=== PATIENT | female | born 1980 | race Caucasian/White ===

== ENCOUNTER → 2018-01-28 | Outpatient (CLI) | payer OTHER ==
[2018-01-28 07:42] LABS: GLUCOSE, FASTING 85 MG/DL (LESS THAN 95)
[2018-01-28 09:09] LABS: 1 HR GLUCOSE 174 MG/DL (LESS THAN 180)
[2018-01-28 10:06] LABS: 2 HR GLUCOSE 139 MG/DL (LESS THAN 155)
[2018-01-28 10:56] LABS: 3 HR GLUCOSE 143 MG/DL (LESS THAN 140)
== END ==
LOC: M LAB 07:05
DX: Z34.83 Encounter for supervision of other normal pregnancy, third trimester (principal); Z36.89 Encounter for other specified antenatal screening
CPT/HCPCS: 82951

== ENCOUNTER 2018-01-29 15:19 | Outpatient (CLI) | payer OTHER ==
[2018-01-29] MEDS ORDERED: LR 1,000 ML IV ×2 (15:50)
[2018-01-29] MEDS: LACTATED RINGER'S 1000 ML IV ×2 (16:03)
[2018-01-29] MEDS: TERBUTALINE SULFATE 1 MG/ML VIAL (J3105) SC ×2 (17:33)
== END 2018-01-29 18:25 | disposition home or self-care (01) ==
LOC: M LDO 15:19
DX: O47.03 False labor before 37 completed weeks of gestation, third trimester (principal); Z3A.31 31 weeks gestation of pregnancy
CPT/HCPCS: J3105

== ENCOUNTER 2018-02-03 13:11 | Outpatient (CLI) | payer OTHER | END 2018-02-03 14:56 | disposition home or self-care (01) | LOC: M LDO 13:11 | DX: O36.8130 Decreased fetal movements, third trimester, not applicable or unspecified (principal); O26.893 Other specified pregnancy related conditions, third trimester; R10.30 Lower abdominal pain, unspecified; O47.03 False labor before 37 completed weeks of gestation, third trimester; Z3A.32 32 weeks gestation of pregnancy | CPT/HCPCS: 76815 ==

== ENCOUNTER 2018-02-23 10:28 | Outpatient (CLI) | payer OTHER | END 2018-02-23 13:20 | disposition home or self-care (01) | LOC: M LDO 10:28 | DX: O47.03 False labor before 37 completed weeks of gestation, third trimester (principal); Z3A.34 34 weeks gestation of pregnancy; Z87.59 Personal history of other complications of pregnancy, childbirth and the puerperium; O26.893 Other specified pregnancy related conditions, third trimester; O09.513 Supervision of elderly primigravida, third trimester | CPT/HCPCS: 59025 ==

== ENCOUNTER → 2018-03-05 | Outpatient (REF) | payer OTHER | LOC: M LAB REF 13:01 | DX: O09.523 Supervision of elderly multigravida, third trimester (principal) ==

== ENCOUNTER 2018-03-15 17:08 | Outpatient (CLI) | payer OTHER | END 2018-03-15 18:00 | disposition home or self-care (01) | LOC: M LDO 17:08 | DX: O47.1 False labor at or after 37 completed weeks of gestation (principal); Z3A.37 37 weeks gestation of pregnancy; O26.893 Other specified pregnancy related conditions, third trimester | CPT/HCPCS: 59025 ==

== ENCOUNTER 2018-03-24 15:06 | Inpatient (IN) | payer OTHER ==
[2018-03-24] MEDS ORDERED: miSOPROStol 50 MCG 1/2 TAB (S0191) PO (16:00)
[2018-03-24] MEDS: OXYTOCIN DRIP 30 UNITS in APPROPRIATE DILUENT 1 EA IV (16:43)
[2018-03-24] MEDS: LR 1,000 ML IV (16:43)
[2018-03-24] MEDS: busPIRone 5 MG TAB PO (16:43)
[2018-03-24 16:44] LABS: HEMATOCRIT 30.5 % (36.0-47.0); HEMOGLOBIN 9.6 g/dl (12.0-15.5); MEAN CORPUSCULAR HEMOGLOBIN 25.1 pg (27.0-33.0); MEAN CORPUSCULAR HGB CONC 31.5 g/dl (32.0-36.5); MEAN CORPUSCULAR VOLUME 79.8 fl (80.0-96.0); PLATELET COUNT, AUTOMATED 277 10^3/uL (150-450); RED BLOOD COUNT 3.82 10^6/uL (4.00-5.40); RED CELL DISTRIBUTION WIDTH 17.7 % (11.5-14.5); WHITE BLOOD COUNT 9.4 10^3/uL (4.0-10.0)
[2018-03-24] MEDS: FAMOTIDINE 20 MG TAB PO (18:07)
[2018-03-24 18:22] LABS: HBSAG L&D NEGATIVE (NEGATIVE)
[2018-03-24] MEDS ORDERED: FENTANYL 2MCG/ML ROPIVACAINE 0.2% IN 0.9% NACL 200ML IVBAG As Ordered (19:26)
[2018-03-24] MEDS ORDERED: REFRIGERATOR IV KEYS XX (20:37)
[2018-03-24] MEDS ORDERED: EPIDURAL/PCA KEYS XX (20:37)
[2018-03-24] MEDS ORDERED: diphenhydrAMINE INJ 50MG/ML VIAL (J1200) IV (20:37)
[2018-03-24] MEDS ORDERED: EPIDURAL COMMENT XX (20:37)
[2018-03-24] MEDS ORDERED: ePHEDrine SULFATE 25 MG/5 ML(5MG/ML) SYRINGE IV (20:37)
[2018-03-24] MEDS ORDERED: FENTANYL/ROPIVACAINE/NACL BAG 200 ML EPIDURAL (20:37)
[2018-03-24] MEDS ORDERED: ONDANSETRON 4MG/2ML VIAL (J2405) IV (20:37)
[2018-03-24] MEDS ORDERED: NALOXONE INJ 0.4 MG/1 ML VIAL (J2310) IV (20:37)
[2018-03-25] MEDS ORDERED: DIBUCAINE 1% OINTMENT 30GM TOP (01:00)
[2018-03-25] MEDS ORDERED: METHYLERGONOVINE MALEATE 0.2 MG TAB PO (01:00)
[2018-03-25] MEDS ORDERED: ONDANSETRON 4MG/2ML VIAL (J2405) IV (01:00)
[2018-03-25] MEDS ORDERED: RHOGAM 300 MCG (1500 IU) INJ (J2790) IM (01:00)
[2018-03-25] MEDS ORDERED: ACETAMINOPHEN 500 MG TAB PO (01:00)
[2018-03-25] MEDS ORDERED: DOCUSATE SODIUM 100 MG CAP PO (01:00)
[2018-03-25] MEDS ORDERED: MEASLES,MUMPS,RUBELLA VACCINE INJ (MMR-II) (90707) SC (01:00)
[2018-03-25] MEDS: OXYTOCIN DRIP 30 UNITS in APPROPRIATE DILUENT 1 EA IV (01:00)
[2018-03-25] MEDS: OXYTOCIN INJ 10 UNITS/ML VIAL (J2590) IV (02:00)
[2018-03-25] MEDS: IBUPROFEN 800 MG TAB PO ×2 (03:59→20:21)
[2018-03-25 07:17] LABS: HEMATOCRIT 21.8 % (36.0-47.0); MEAN CORPUSCULAR HEMOGLOBIN 24.6 pg (27.0-33.0); MEAN CORPUSCULAR HGB CONC 30.3 g/dl (32.0-36.5); MEAN CORPUSCULAR VOLUME 81.3 fl (80.0-96.0); PLATELET COUNT, AUTOMATED 208 10^3/uL (150-450); RED BLOOD COUNT 2.68 10^6/uL (4.00-5.40); RED CELL DISTRIBUTION WIDTH 17.5 % (11.5-14.5); WHITE BLOOD COUNT 17.2 10^3/uL (4.0-10.0)
[2018-03-25 07:25] LABS: HEMOGLOBIN 6.6 g/dl (12.0-15.5)
[2018-03-25 08:40] LABS: IMMEDIATE SPIN CROSSMATCH 1 2
[2018-03-25] MEDS: PRENATAL VITAMINS CHEWABLE TABLET PO (09:08)
[2018-03-25] MEDS ORDERED: PERCOCET 5MG/325MG TAB PO (11:30)
[2018-03-25] MEDS: PERCOCET 5MG/325MG TAB PO ×3 (11:44→20:22)
[2018-03-25] MEDS: NS 1,000 ML IV (13:00)
[2018-03-25 19:47] LABS: HEMATOCRIT 27.7 % (36.0-47.0); HEMOGLOBIN 9.1 g/dl (12.0-15.5); MEAN CORPUSCULAR HEMOGLOBIN 26.5 pg (27.0-33.0); MEAN CORPUSCULAR HGB CONC 32.9 g/dl (32.0-36.5); MEAN CORPUSCULAR VOLUME 80.8 fl (80.0-96.0); PLATELET COUNT, AUTOMATED 222 10^3/uL (150-450); RED BLOOD COUNT 3.43 10^6/uL (4.00-5.40); RED CELL DISTRIBUTION WIDTH 17.5 % (11.5-14.5); WHITE BLOOD COUNT 16.8 10^3/uL (4.0-10.0)
[2018-03-26] MEDS: PERCOCET 5MG/325MG TAB PO ×2 (02:26→11:41)
[2018-03-26] MEDS: PRENATAL VITAMINS CHEWABLE TABLET PO (08:54)
[2018-03-26] MEDS: IBUPROFEN 800 MG TAB PO (15:17)
== END 2018-03-26 18:40 | disposition home or self-care (01) | DRG 807 ==
LOC: M LDI 15:06 → M OBS 03-25 04:57
PROC: 3E0DXGC Introduction of Other Therapeutic Substance into Mouth and Pharynx, External Approach (ICD-10-PCS; 2018-03-24)
PROC: 10E0XZZ Delivery of Products of Conception, External Approach (ICD-10-PCS; principal; 2018-03-25)
PROC: 0KQM0ZZ Repair Perineum Muscle, Open Approach (ICD-10-PCS; 2018-03-25)
DX: O69.82X0 Labor and delivery complicated by other cord entanglement, without compression, not applicable or unspecified (principal); Z37.0 Single live birth; O09.523 Supervision of elderly multigravida, third trimester; O70.1 Second degree perineal laceration during delivery; Z3A.39 39 weeks gestation of pregnancy

== ENCOUNTER 2018-07-10 13:39 | Day surgery (SDC) | payer OTHER ==
[~2018-07-10] VITALS: Ht 152.4 cm; Wt 57.6 kg
[~2018-07-10 13:39] MED LIST: BUSP5TA PO; COLA100C5 PO; FERR325T3 PO; GLYCOPYRROLATE INJ 0.2 MG/ML 2 ML VIAL As Ordered ONE; HYDROmorphone HCL 2 MG/ML 1ML VIAL (J1170) As Ordered ONE; IBUP80TA PO; KETOROLAC 60 MG/2 ML VIAL (J1885) As Ordered ONE; LIDOCAINE 2% INJ 100 MG/5 ML SDV (FOR ANES.) As Ordered ONE; LR 1,000 ML IV ONE; MAPA500T2 PO; MIDAZOLAM INJ 2 MG/2 ML VIAL (J2250) As Ordered ONE; MULT1CHW25 PO; NEOSTIGMINE 10 MG/10 ML VIAL (J2710) As Ordered ONE; ONDANSETRON 4MG/2ML VIAL (J2405) As Ordered ONE; OXYC1TAB23 PO; PERCOCET PO; PRENTAB9 PO; PROMETHAZINE PO; PROPOFOL 200 MG/20 ML VIAL As Ordered ONE; RANI150T PO; ROCURONIUM BROMIDE 50 MG/5 ML VIAL As Ordered ONE; dexameTHASONE 4 MG/ML 1ML VIAL (J1100) As Ordered ONE; fentaNYL 100 MCG/2 ML INJECTION (J3010) As Ordered ONE
[2018-07-10 14:04] LABS: HEMATOCRIT 38.8 % (36.0-47.0); HEMOGLOBIN 12.5 g/dl (12.0-15.5); MEAN CORPUSCULAR HEMOGLOBIN 27.5 pg (27.0-33.0); MEAN CORPUSCULAR HGB CONC 32.2 g/dl (32.0-36.5); MEAN CORPUSCULAR VOLUME 85.3 fl (80.0-96.0); PLATELET COUNT, AUTOMATED 386 10^3/uL (150-450); RED BLOOD COUNT 4.55 10^6/uL (4.00-5.40)
[2018-07-10 14:18] LABS: URINE PREG TEST NEGATIVE (NEGATIVE)
[2018-07-10] MEDS ORDERED: BUPIVACAINE HCL 0.25% 10 ML VIAL As Ordered ONE (15:06)
[2018-07-10] MEDS ORDERED: OXYC1TAB23 PO (15:31)
[2018-07-10] MEDS ORDERED: SUGAMMADEX SODIUM 500 MG/5 ML VIAL (BRIDION) As Ordered ONE (15:51)
[2018-07-10] MEDS ORDERED: GLYCOPYRROLATE INJ 0.2 MG/ML 2 ML VIAL As Ordered ONE (15:53)
[2018-07-10] MEDS ORDERED: NEOSTIGMINE 10 MG/10 ML VIAL (J2710) As Ordered ONE (15:53)
[2018-07-10] MEDS ORDERED: HYDROMORPHONE HCL 0.5 MG/ 0.5 ML SYRINGE (J1170 PER 1) As Ordered ONE (16:23)
[2018-07-10] MEDS: HYDROMORPHONE HCL 0.5 MG/ 0.5 ML SYRINGE (J1170 PER 1) IV PRN ×2 (16:30→16:45)
[2018-07-10] MEDS ORDERED: ONDANSETRON 4MG/2ML VIAL (J2405) IV PRN (16:30)
[2018-07-10] MEDS ORDERED: METOCLOPRAMIDE INJ 10MG/2ML VIAL (J2765) IV PRN (16:30)
[2018-07-10] MEDS ORDERED: HYDROMORPHONE HCL 0.5 MG/ 0.5 ML SYRINGE (J1170 PER 1) IV PRN (16:30)
[2018-07-10] MEDS ORDERED: PERCOCET 5MG/325MG TAB PO PRN ×2 (16:30)
[2018-07-10] MEDS ORDERED: MEPERIDINE INJ 25 MG/ML VIAL (J2175) IV PRN (16:30)
[2018-07-10] MEDS ORDERED: LR 1,000 ML IV SCH ×2 (16:30)
[2018-07-10] MEDS ORDERED: fentaNYL 100 MCG/2 ML INJECTION (J3010) IV PRN (16:30)
[2018-07-10 18:55] VITALS: BP 112/73
== END 2018-07-10 19:08 | disposition home or self-care (01) ==
LOC: M SDC 13:39
PROVIDERS: ATTEND Specialist
DX: Z30.2 Encounter for sterilization (principal); D64.9 Anemia, unspecified
CPT/HCPCS: 36415; 58661; 84703; 85027; 88302; J1100; J1170; J1885; J2250; J2405; J2710; J3010

== ENCOUNTER 2020-11-11 05:33 | Emergency (ER) | payer OTHER ==
[~2020-11-11 05:33] MED LIST changes: -GLYCOPYRROLATE INJ 0.2 MG/ML 2 ML VIAL As Ordered ONE; -HYDROmorphone HCL 2 MG/ML 1ML VIAL (J1170) As Ordered ONE; -KETOROLAC 60 MG/2 ML VIAL (J1885) As Ordered ONE; -LIDOCAINE 2% INJ 100 MG/5 ML SDV (FOR ANES.) As Ordered ONE; -LR 1,000 ML IV ONE; -MIDAZOLAM INJ 2 MG/2 ML VIAL (J2250) As Ordered ONE; -NEOSTIGMINE 10 MG/10 ML VIAL (J2710) As Ordered ONE; -ONDANSETRON 4MG/2ML VIAL (J2405) As Ordered ONE; -PROPOFOL 200 MG/20 ML VIAL As Ordered ONE; -ROCURONIUM BROMIDE 50 MG/5 ML VIAL As Ordered ONE; -dexameTHASONE 4 MG/ML 1ML VIAL (J1100) As Ordered ONE; -fentaNYL 100 MCG/2 ML INJECTION (J3010) As Ordered ONE
[2020-11-11 06:21] LABS: BASO # 0.1 10^3/uL (0.0-0.2); BASO % 0.6 % (0.0-1.0); EOS # 0.1 10^3/uL (0.0-0.5); EOS % 0.7 % (0.0-3.0); HEMATOCRIT 37.1 % (36.0-47.0); HEMOGLOBIN 11.9 g/dl (12.0-15.5); LYMPH # 2.2 10^3/uL (1.5-5.0); LYMPH % 24.9 % (24.0-44.0); MEAN CORPUSCULAR HEMOGLOBIN 28.5 pg (27.0-33.0); MEAN CORPUSCULAR HGB CONC 32.1 g/dl (32.0-36.5); MONO # 0.6 10^3/uL (0.0-0.8); NEUTROPHILS # 5.9 10^3/uL (1.5-8.5); NEUTROPHILS % 65.9 % (36.0-66.0); PLATELET COUNT, AUTOMATED 357 10^3/uL (150-450); RED BLOOD COUNT 4.17 10^6/uL (4.00-5.40)
[2020-11-11] MEDS ORDERED: NS 1,000 ML IV ONE (06:35)
[2020-11-11] MEDS ORDERED: ISOVUE-370 76% 100ML VIAL As Ordered ONE (06:37)
[2020-11-11 06:52] LABS: ALBUMIN 3.4 GM/DL (3.2-5.2); ALT/SGPT 33 U/L (12-78); BILIRUBIN,DIRECT < 0.1 MG/DL (0.0-0.2); BILIRUBIN,TOTAL 0.3 MG/DL (0.2-1.0); BLOOD UREA NITROGEN 9 MG/DL (7-18); C REACTIVE PROTEIN QUANTITATIV 0.42 MG/DL (0.00-0.30); CALCIUM LEVEL 8.2 MG/DL (8.5-10.1); CARBON DIOXIDE LEVEL 24 MEQ/L (21-32); CHLORIDE LEVEL 112 MEQ/L (98-107); CREATININE FOR GFR 0.69 MG/DL (0.55-1.30); GLOMERULAR FILTRATION RATE > 60.0 (>60); GLUCOSE, FASTING 102 MG/DL (70-100); LIPASE 96 U/L (73-393); POTASSIUM SERUM 4.2 MEQ/L (3.5-5.1); SODIUM LEVEL 141 MEQ/L (136-145); TOTAL PROTEIN 6.7 GM/DL (6.4-8.2)
[2020-11-11 06:56] LABS: HCG, SERUM QUALITATIVE NEGATIVE (NEGATIVE)
[2020-11-11] MEDS ORDERED: MORPHINE 4 MG/ML 1ML VIAL/SYRINGE (J2270) IV ONE (07:05)
[2020-11-11 07:25] LABS: ERYTHROCYTE SEDIMENTATION RATE 16 mm/hr (0-20)
[2020-11-11 07:54] LABS: APPEARANCE, URINE HAZY (CLEAR); BACTERIA, URINE AUTO 1+ (NEGATIVE); BILIRUBIN, URINE AUTO NEGATIVE (NEGATIVE); BLOOD, URINE BLOOD 3+ (NEGATIVE); COLOR, URINE YELLOW (YELLOW); GLUCOSE, URINE (UA) AUTO NEGATIVE (NEGATIVE); KETONE, URINE AUTO NEGATIVE (NEGATIVE); LEUKOCYTE ESTERASE, URINE AUTO NEGATIVE (NEGATIVE); MUCUS, URINE SMALL (NEGATIVE); NITRITE, URINE AUTO NEGATIVE (NEGATIVE); PROTEIN, URINE AUTO 1+ mg/dL (NEGATIVE); RBC, URINE AUTO TNTC /HPF (0-3); SPECIFIC GRAVITY URINE AUTO 1.017 (1.002-1.035); SQUAMOUS EPITHELIAL CELL UR AU 2 /HPF (0-6); UROBILINOGEN, URINE AUTO 0.2 mg/dL (0.0-2.0); WBC, URINE AUTO 5 /HPF (0-3)
[2020-11-11] MEDS ORDERED: MORPHINE 2 MG/ML 1ML VIAL (J2270) IV ONE (09:30)
--- NOTE | 2020-11-11 09:37 | REPVR ---
PROCEDURE INFORMATION: Exam: CT Abdomen And Pelvis With Contrast Exam date and time: 11/11/2020 7:28 AM Age: 40 years old Clinical indication: Abdominal pain; Localized; Left; Additional info: Left abd pain with bloody stools TECHNIQUE: Imaging protocol: Computed tomography of the abdomen and pelvis with contrast. Radiation optimization: All CT scans at this facility use at least one of these dose optimization techniques: automated exposure control; mA and/or kV adjustment per patient size (includes targeted exams where dose is matched to clinical indication); or iterative reconstruction. Contrast material: ISOVUE 370; Contrast volume: 100 ml; Contrast route: INTRAVENOUS (IV); COMPARISON: No relevant prior studies available. FINDINGS: Liver: Subcentimeter hepatic hypodensities, measuring up to 4 mm. These are too small to definitively characterize, but likely represent cysts. Gallbladder and bile ducts: Normal. No calcified stones. No ductal dilation. Pancreas: Normal. No ductal dilation. Spleen: Normal. No splenomegaly. Adrenal glands: Normal. No mass. Kidneys and ureters: Mild left-sided hydroureteronephrosis secondary to an obstructing 2 mm transverse by 2 mm CC calculus at the left UVJ. 11 mm simple left renal cortical cyst. No right-sided hydronephrosis. Stomach and bowel: Unremarkable. No obstruction. No mucosal thickening. Appendix: No evidence of appendicitis. Intraperitoneal space: Unremarkable. No free air. No significant fluid collection. Vasculature: Unremarkable. No abdominal aortic aneurysm. Lymph nodes: Unremarkable. No enlarged lymph nodes. Urinary bladder: Unremarkable as visualized. Reproductive: Incidental physiologic right ovarian corpus luteum cyst, measuring 15 mm. Bones/joints: Unremarkable. No acute fracture. Soft tissues: Unremarkable. IMPRESSION: Mild left-sided hydroureteronephrosis secondary to an obstructing 2 mm left UVJ calculus. COMMENTS: Consistent with the [employer]'s Incidental Findings Committee white paper (J Am Sonia Radiol 2018): Any incidental renal lesion less than 1 cm or classified as too small to characterize, or any incidental cystic renal lesion characterized as simple-appearing, is likely benign. No follow-up imaging is recommended for these lesions per consensus recommendations based on imaging criteria. Electronically signed by: Roxy Wang On 11/11/2020 09:36:53 AM
[2020-11-11] MEDS ORDERED: KETO10TAB PO (10:26)
[2020-11-11] MEDS ORDERED: ONDA4TAB6 PO (10:26)
[2020-11-11] MEDS ORDERED: ANUS25SU PR (10:26)
[2020-11-11 10:42] VITALS: BP 112/62
== END 2020-11-11 10:44 | disposition home or self-care (01) ==
LOC: M ED 05:33
DX: N13.2 Hydronephrosis with renal and ureteral calculous obstruction (principal); K92.1 Melena; Z88.6 Allergy status to analgesic agent; Z79.899 Other long term (current) drug therapy
CPT/HCPCS: 74177; 80048; 80076; 81001; 83605; 83690; 84703; 85025; 85652; 86140; 86850; 86900; 86901; 87086; 93041; 96361; 96374; 99284; J2270; Q9967